=== PATIENT | male | born 1995 | race Caucasian/White ===

== ENCOUNTER 2024-11-15 12:57 | Emergency (ER) | payer OTHER, SELFPAY ==
[2024-11-15 13:05] VITALS: BP 130/87; BMI 20.3
--- NOTE | 2024-11-15 13:14 | ED.GENMED ---
History of Present Illness
General
Chief Complaint: Crisis Evaluation
Source: patient and police
Time Seen by Provider: 11/15/24 13:01
History of Present Illness
History of Present Illness:
29-year-old male with past medical history of bipolar disorder, schizophrenia and substance abuse presenting to the emergency department for evaluation after mother filed a 302 against the patient due to patient displaying abnormal behavior,
expressing homicidal ideations, suspected auditory hallucinations, not complying with medication regimen, not eating or showering/taking care of himself. Patient uses methamphetamine and marijuana daily. Currently he has no physical complaints.
No other concerns presently.
Past History
Past History
ED Past Medical History: Psychiatric
ED Past Surgical History: None
Social History
Tobacco: Smoker
Alcohol: None
Drug: Marijuana and Other
Personal: Single
Living: with family
Employment: Employed
Review of Systems
Review of Systems
All Other Systems: ROS reviewed and negative except as documented in HPI and ROS
Phy Exam
Physical Exam
Physical Exam:
GENERAL: Alert , in no apparent distress
EYE: conjunctiva clear
NECK: Supple
ENT: o/p clr, mmm.
CARDIAC: Regular rate and rhythm
LUNGS: Clear breath sounds bilaterally, no acute respiratory distress, no wheezes/rales/rhonchi
NEUROLOGICAL: Alert and oriented
SKIN: Warm and dry, skin intact.
MUSCULOSKELETAL: well perfused.
PSYCH: Normal and appropriate interaction.
Scores
Heart Failure Risk
Heart Failure Risk Score: Not Applicable
Heart Score for Chest Pain Patients
STEMI patient?: Not applicable
Withdrawal Assessment of Alcohol
Withdrawal Assessment Completed?: Not applicable
Course
Orders/Labs/Results
Orders:
Orders
11/15/24 13:13
1:1 Observation - Suicide/ Violent Behavior As Directed
Crisis Consult Urgent
Reason for Consult: 302
11/15/24 13:16
Complete Blood Count/With Diff Urgent
Comprehensive Metabolic Panel Urgent
11/15/24 13:47
Fentanyl, Urine Urgent
Urine Drug Abuse Screen Urgent
Date Specimen was Collected: 11/15/24
Time Specimen was Collected: 13:15
Abnormal Lab Results
11/15/24 11/15/24
13:16 13:47
RBC 4.41 L 10^6/uL
(4.70-6.10)
MCH 31.1 H pg
(27.0-31.0)
MPV 12.3 H fL
(7.4-10.4)
BUN 21 H mg/dl
(9-20)
Ur Amphetamines Screen Positive H
(Negative)
U Methamphetamines Scrn Positive H
(Negative)
U Marijuana (THC) Screen Positive H
(Negative)
11/15/24 13:16
11/15/24 13:16
Vital Signs
Initial and Last Documented VS:
Initial Vital Signs
Temp Pulse Resp BP Pulse Ox
98.0 F 69 16 130/87 97
11/15/24 13:05 11/15/24 13:05 11/15/24 13:05 11/15/24 13:05 11/15/24 13:05
Last Documented Vital Signs
Temp Pulse Resp BP Pulse Ox
98.0 F 69 16 130/87 97
11/15/24 13:05 11/15/24 13:05 11/15/24 13:05 11/15/24 13:05 11/15/24 13:05
MDM/Problems Addressed
Differential Diagnosis Includes:
substance abuse, chronic mental health disorder/non-compliance with meds, no concern for acute physcial emergent pathologies
MDM/Problems Addressed:
29 year old male presenting to ED for evaluation with police after mother filed 302 against patient. Reportedly trying to buy a gun off of people in his neighborhood to 'kill the people after him and his family'. Patient denying this. Well appearing
and in no acute distress here. Compliant with directions and answering questions appropriately. Patient placed on 1:1 observation due to 302 being filed. Crisis consult ordered
Chronic conditions affecting care: Psychiatric illness
Acute Exacerbation and/or Progression of Chronic Illness: Psychiatric illness
*Pulse Oximetry
Patient hypoxic: no
*Critical Care Note
Total Time (30-74mins, 75-104mins- exclusive of procedures): Not Applicable
Patient Management
Escalation/DeEscalation of care consider admission/obs:
Call patient seen by psychiatrist, Dr. Jama, and 302 was not upheld and patient is stable for discharge home. He was provided with outpatient follow-up information..
ED Attending Note
-
Portions of this chart may have been created with voice recognition software.� Occasional wrong word or��sound alike� substitutions may have occurred due to the inherent limitations of voice recognition software.
Discharge Plan
Departure
Patient Disposition: Home (Routine Discharge)
Date of Disposition: 11/15/24
Time of Disposition: 14:22
Patient with high blood pressure during this ER visit?: No
Discharge Problem:
Substance abuse
Instructions: Drug and Alcohol Abuse Information
Prescriptions:
No Action
No Meds [No Current Medications]
0
Referrals:
NONE,* [Family Provider] -
Interventions
Interventions:
*Risk Screen - Suicide Last Done: 11/15/24 13:05
*General Assessment Last Done: 11/15/24 13:05
*Neglect/Abuse Screening Last Done: 11/15/24 13:05
*ED- Fall Risk Assessment Last Done: 11/15/24 14:48
*ED COVID-19 Vaccine History Last Done: 11/15/24 14:48
*Nursing Disposition Last Done: 11/15/24 14:48
ED-Psychological Assessment Last Done: 11/15/24 13:45
Discharge Date and Time
Discharge Date/Time: 11/15/24 14:50
Print Language: MACEDONIAN
[2024-11-15 13:26] LABS: % Eosinophils 2.1 % (0-6); % Immature Granulocytes 0.2 % (0-0.5); % Monocytes 6.8 % (1.7-9.3); % Neutrophils 59.9 % (42.2-75.2); Absolute Basophils 0.1 10^3/uL (0-0.2); Absolute Eosinophils 0.1 10^3/uL (0-0.7); Absolute Lymphocytes 1.6 10^3/uL (1.2-3.4); Absolute Monocytes 0.4 10^3/uL (0.1-0.6); Absolute Neutrophils 3.1 10^3/uL (1.4-6.5); Hematocrit 39.3 % (39.0-52.0); Hemoglobin 13.7 g/dL (13.0-18.0); Mean Corp Hgb Conc. 34.9 g/dL (33.0-37.0); Mean Corpuscular Hgb 31.1 pg (27.0-31.0); Mean Corpuscular Volume 89.1 fL (80.0-94.0); Mean Platelet Volume 12.3 fL (7.4-10.4); Nucleated Red Blood Cells % 0 % (-); Platelet Count 192 10^3/uL (130-400); Red Blood Cell Count 4.41 10^6/uL (4.70-6.10); Red Cell Dist. Width 13.7 % (11.5-14.5); White Blood Cell Count 5.2 10^3/uL (4.8-10.8)
[2024-11-15 13:42] LABS: ALT (SGPT) 26 U/L (0-50); AST (SGOT) 36 U/L (17-59); Albumin 4.5 g/dl (3.5-5.0); Alkaline Phosphatase 53 U/L (38-126); Blood Urea Nitrogen 21 mg/dl (9-20); Calcium 9.2 mg/dl (8.4-10.2); Carbon Dioxide 25 mmol/L (22-30); Chloride 104 mmol/L (98-107); Estimated Creatinine Clearance > 125 ml/min; Glucose 93 mg/dl (70-99); Potassium 4.6 mmol/L (3.5-5.1); Sodium 138 mmol/L (135-145); Total Bilirubin 0.9 mg/dl (0.2-1.3); Total Protein 6.6 g/dl (6.3-8.2); eGFR > 60.00
--- NOTE | 2024-11-15 14:47 | EDRN ---
Patient's 302 was not upheld he was cleared by crisis, patient to be discharged
[2024-11-15 14:50] LABS: Amphetamines Positive (Negative); Barbiturates Negative (Negative); Benzodiazepines Negative (Negative); Buprenorphine Negative (Negative); Cocaine Negative (Negative)
[2024-11-15 14:51] LABS: Marijuana Positive (Negative); Methadone Negative (Negative); Methamphetamines Positive (Negative); Opiates Negative (Negative); Phencyclidine Negative (Negative); Tricyclic Antidepressants Negative (Negative)
--- NOTE | 2024-11-15 14:57 | W.PN.UPDATE ---
Update Note
Progress Note Update
Pt seen for 302 exam. Pt alert, oriented, calm, cooperative, reclining in [facility]. Pt making eye contact, affect appropriate, speech coherent with some rambling. Thought goal-directed overall. No overt delusions or hallucinations. No agitation.
Pt denies any suicidal or homicidal ideation. Pt states his mother and grandmother make him anxious, and he was planning to stay in a hotel for while. Pt reports he was in rehab last year, then in a recovery house, but was kicked out. Pt has been
staying at his grandmother's home. Pt reports hx of outpatient treatment, and is agreeable to follow up with outpatient services. No dangerous behavior is alleged on the 302. No agitation noted since brought to the ER. Pt noted stating he has
been using methamphetamine and MJ.
Imp: 302 is not upheld; pt does not present acute symptoms or behaviors to justify involuntary treatment
Hx of Schizoaffective d/o; Substance use- meth and MJ recently
Rec: Outpatient therapy, case mgt, possible med mgt. Reviewed with Crisis staff, who will assist pt with resources
[2024-11-15 15:29] LABS: Fentanyl, Urine Negative (Negative)
== END 2024-11-15 14:50 | disposition home or self-care (01) ==
LOC: EMR 12:57
PROVIDERS: Physician Assistant Medical; EMERGENCY PHYSICIAN Student in an Organized Health Care Education/Training Program; OTHER PHYSICIAN Psychiatry & Neurology Psychiatry
DX: F25.9 Schizoaffective disorder, unspecified (principal); R45.850 Homicidal ideations; F15.10 Other stimulant abuse, uncomplicated; F12.90 Cannabis use, unspecified, uncomplicated; F20.9 Schizophrenia, unspecified; F31.9 Bipolar disorder, unspecified; Z91.148 Patient's other noncompliance with medication regimen for other reason; F17.200 Nicotine dependence, unspecified, uncomplicated
CPT/HCPCS: 99284; 80053; 80306; 80307; 85025